=== PATIENT | male | born 1995 | race Caucasian/White ===

== ENCOUNTER 2017-04-08 17:50 | Emergency (ER) | payer OTHER ==
[~2017-04-08] VITALS: Ht 182.9 cm; Wt 77.2 kg
[2017-04-08 17:50] VITALS: BP 133/72
[2017-04-08] MEDS ORDERED: NORCO, ANEXSIA 5/325MG TABLET (HYDROcodone/ACETAMINOPHEN) PO ONE (20:15)
[2017-04-08] MEDS ORDERED: ceFAZolin 1GM INJ (J0690) IM ONE (20:15)
[2017-04-08] MEDS ORDERED: LIDOCAINE 2% MDV 20 ML VIAL SC ONE (20:15)
[2017-04-08] MEDS ORDERED: NORCOTAB PO (21:14)
[2017-04-08] MEDS ORDERED: KEFL500C17 PO (21:14)
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
== END 2017-04-08 21:25 | disposition home or self-care (01) ==
LOC: M ED 17:50
DX: S62.662B Nondisplaced fracture of distal phalanx of right middle finger, initial encounter for open fracture (principal); S61.212A Laceration without foreign body of right middle finger without damage to nail, initial encounter; W23.1XXA Caught, crushed, jammed, or pinched between stationary objects, initial encounter; Y92.89 Other specified places as the place of occurrence of the external cause; Y93.89 Activity, other specified; Y99.0 Civilian activity done for income or pay
CPT/HCPCS: 12001; 73140; 96372; 99283; J0690

== ENCOUNTER 2019-08-01 18:42 | Emergency (ER) | payer OTHER ==
[~2019-08-01] VITALS: Ht 182.9 cm; Wt 64.6 kg
[~2019-08-01 18:42] MED LIST: HYDR-3715 PO; KEFL500C17 PO
[2019-08-01] MEDS ORDERED: NS 1,000 ML IV ONE ×3 (19:00→22:45)
[2019-08-01] MEDS ORDERED: ISOVUE-370 76% 100ML VIAL (Q9967) As Ordered ONE (19:07)
[2019-08-01 19:29] LABS: BASO # 0.1 10^3/uL (0.0-0.2); BASO % 0.4 % (0.0-1.0); EOS # 0.2 10^3/uL (0.0-0.5); EOS % 1.9 % (0.0-3.0); HEMATOCRIT 45.3 % (42.0-52.0); LYMPH # 2.8 10^3/uL (1.5-5.0); LYMPH % 23.2 % (24.0-44.0); MEAN CORPUSCULAR HEMOGLOBIN 30.1 pg (27.0-33.0); MEAN CORPUSCULAR HGB CONC 33.1 g/dl (32.0-36.5); MONO # 1.1 10^3/uL (0.0-0.8); MONO % 8.9 % (0.0-5.0); NEUTROPHILS # 7.9 10^3/uL (1.5-8.5); NEUTROPHILS % 65.4 % (36.0-66.0); PLATELET COUNT, AUTOMATED 334 10^3/uL (150-450); RED BLOOD COUNT 4.98 10^6/uL (4.30-6.10); WHITE BLOOD COUNT 12.1 10^3/uL (4.0-10.0)
[2019-08-01 19:39] LABS: INR 1.24; PROTHROMBIN TIME 15.3 SECONDS (11.8-14.0)
[2019-08-01 19:57] LABS: ALBUMIN 4.2 GM/DL (3.2-5.2); ALT/SGPT 23 U/L (12-78); AMYLASE 53 U/L (25-115); BILIRUBIN,DIRECT 0.1 MG/DL (0.0-0.2); BILIRUBIN,TOTAL 0.5 MG/DL (0.2-1.0); BLOOD UREA NITROGEN 15 MG/DL (7-18); CALCIUM LEVEL 9.2 MG/DL (8.5-10.1); CARBON DIOXIDE LEVEL 28 MEQ/L (21-32); CHLORIDE LEVEL 106 MEQ/L (98-107); CK-MB VALUE MASS 1.6 NG/ML (<3.6); CPK CREATINE PHOSPHOKINASE 255 U/L (39-308); CREATININE FOR GFR 0.93 MG/DL (0.70-1.30); ETHYL ALCOHOL (ETHANOL) < 0.003 % (0.000-0.010); GLOMERULAR FILTRATION RATE > 60.0 (>60); GLUCOSE, FASTING 99 MG/DL (70-100); LIPASE 108 U/L (73-393); MB/CK RELATIVE INDEX 0.63 (< OR =4); POTASSIUM SERUM 3.9 MEQ/L (3.5-5.1); SODIUM LEVEL 141 MEQ/L (136-145); TOTAL PROTEIN 7.7 GM/DL (6.4-8.2); TROPONIN I < 0.02 NG/ML (< 0.10)
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
[2019-08-02 00:40] LABS: AMPHETAMINES LEVEL URINE NEGATIVE (NEGATIVE); BARBITURATES URINE NEGATIVE (NEGATIVE); BENZODIAZEPINES URINE NEGATIVE (NEGATIVE); CANNABINOIDS URINE POSITIVE (NEGATIVE); COCAINE METABOLITE URINE NEGATIVE (NEGATIVE); METHADONE URINE NEGATIVE (NEGATIVE); OPIATES URINE NEGATIVE (NEGATIVE)
[2019-08-02 00:41] LABS: PHENCYCLIDINE URINE NEGATIVE (NEGATIVE)
[2019-08-02 00:45] VITALS: BP 108/66
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
== END 2019-08-02 01:10 | disposition home or self-care (01) ==
LOC: M ED 18:42
DX: R41.82 Altered mental status, unspecified (principal); S06.0X0A Concussion without loss of consciousness, initial encounter; V47.5XXA Car driver injured in collision with fixed or stationary object in traffic accident, initial encounter; Y92.410 Unspecified street and highway as the place of occurrence of the external cause; Z88.1 Allergy status to other antibiotic agents; Z88.7 Allergy status to serum and vaccine; F17.210 Nicotine dependence, cigarettes, uncomplicated
CPT/HCPCS: 70450; 71260; 72125; 74177; 80048; 80076; 80307; 81001; 82150; 82550; 82553; 83605; 83690; 84484; 85025; 85610; 85730; 86850; 86900; 86901; 93041; 94760; 96360; 96361; 99285; G0480; Q9967

== ENCOUNTER → 2025-05-26 | Outpatient (REF) | payer MEDICAID | LOC: M LAB REF 17:10 | PROVIDERS: ATTEND Physician Assistant | DX: B34.9 Viral infection, unspecified (principal); J02.9 Acute pharyngitis, unspecified ==